=== PATIENT | male | born 1990 | race Two or more races ===

== ENCOUNTER → 2024-10-30 | Outpatient (CLI) | payer MEDICARE, MEDICAID, SELFPAY ==
--- NOTE | 2024-10-30 14:00 | XR_ITS ---
Examination: Abdomen sonogram, complete Date and time of exam: October 30, 2024 1447 hours INDICATIONS: Vomiting this week. Technique: Multiple real-time grayscale transabdominal sonographic images of the abdomen have been obtained. Findings: Absent gallbladder Normal common bile duct 0.3 cm Pancreatic head 2.3 cm Aorta not enlarged Liver 14.7 cm no liver lesions Normal hepatopedal portal venous flow Patent IVC Right kidney 10.1 cm renal cortex 1.5 cm Left kidney 11.6 cm renal cortex 1.7 cm No hydronephrosis Spleen 10.4 cm IMPRESSION: Absent gallbladder Normal common bile duct Liver normal size no focal liver lesions
== END | disposition home or self-care (01) ==
PROVIDERS: PCP Physician Assistant; Referring Provider Internal Medicine Gastroenterology; Visit Provider Internal Medicine Gastroenterology
DX: R10.31 Right lower quadrant pain (principal); R10.32 Left lower quadrant pain; Z90.49 Acquired absence of other specified parts of digestive tract
CPT/HCPCS: 76700